=== PATIENT | female | born 1990 | race African-American/Black ===

== ENCOUNTER 2018-08-08 10:08 | Emergency (ER) | payer OTHER ==
[~2018-08-08] VITALS: Ht 167.6 cm; Wt 108.9 kg
[2018-08-08 10:34] VITALS: BP 110/70
[2018-08-08] MEDS ORDERED: IV NORMAL SALINE 1000ML BAG 1,000 ML IV ONE (10:45)
--- NOTE | 2018-08-08 10:48 | PHYS DOC ---
Past Medical History Past Medical History: Asthma Alcohol Use: None Drug Use: None Adult General Chief Complaint Chief Complaint: VOMITING IN HPI HPI Patient is a 28 year old AA female who presents to the ER with complaints of nausea and vomiting for the last 2 weeks. Pt states she is unsure of when her LMP was, she reports having irregular cycles since having her Nexplanon removed. She denies any fever, back pain, abdominal pain, pelvic pain, vaginal bleeding, irregular vaginal discharge, dysuria, or urinary frequency. Pt states she has had a dry cough, and sore throat for the last week. She is 2 para 1. She has not seen her OBgyn yet, she has an appointment scheduled for 08/22. Review of Systems Review of Systems Constitutional: Denies fever or chills [] Eyes: Denies change in visual acuity, redness, or eye pain [] HENT: Denies nasal congestion or ear pain, see HPI Respiratory: Denies wheezing or shortness of breath; see HPI Cardiovascular: No additional information not addressed in HPI [] GI: Denies abdominal pain, or diarrhea; see HPI : Denies dysuria or hematuria [] Musculoskeletal: Denies back pain or joint pain [] Integument: Denies rash or skin lesions [] Neurologic: Denies headache, focal weakness or sensory changes [] Current Medications Current Medications Current Medications Medications (Trade) Dose Ordered Sig/Elise Start Time Stop Time Status Last Admin Dose Admin Sodium Chloride 1,000 ml @ 1,000 mls/hr 1X ONCE 08/08/18 10:45 08/08/18 11:44 08/08/18 11:05 1,000 MLS/HR Allergies Allergies Allergies Coded Allergies Type Severity Reaction Last Updated Verified No Known Drug Allergies 08/08/18 No Physical Exam Physical Exam Constitutional: Well developed, well nourished, no acute distress, non-toxic appearance, obese [] HENT: Normocephalic, atraumatic, bilateral external ears normal, oropharynx moist, nose normal. [] Eyes: PERRLA, conjunctiva normal, no discharge. [] Neck: Normal range of motion, no stridor. [] Cardiovascular:Heart rate regular rhythm, no murmur [] Lungs & Thorax: Bilateral breath sounds clear to auscultation [] Abdomen: soft, no tenderness, no masses, no pulsatile masses. [] Skin: Warm, dry, no erythema, no rash. [] Extremities: No cyanosis, ROM intact, no edema. [] Neurologic: Alert and oriented X 3, normal motor function, normal sensory function, no focal deficits noted. [] Psychologic: Affect normal, judgement normal, mood normal. [] Current Patient Data Vital Signs Vital Signs Date Time Temp Pulse Resp B/P (MAP) Pulse Ox O2 Delivery O2 Flow Rate FiO2 08/08/18 10:34 98.6 89 18 110/70 (83) 99 Room Air 98.6 Lab Values Laboratory Tests Test 08/08/18 10:29 08/08/18 11:00 POC Urine HCG, Qualitative Hcg positive (Negative) White Blood Count 4.2 x10^3/uL (4.0-11.0) Red Blood Count 4.99 x10^6/uL (3.50-5.40) Hemoglobin 13.5 g/dL (12.0-15.5) Hematocrit 40.7 % (36.0-47.0) Mean Corpuscular Volume 82 fL (79-100) Mean Corpuscular Hemoglobin 27 pg (25-35) Mean Corpuscular Hemoglobin Concent 33 g/dL (31-37) Red Cell Distribution Width 14.3 % (11.5-14.5) Platelet Count 248 x10^3/uL (140-400) Neutrophils (%) (Auto) 66 % (31-73) Lymphocytes (%) (Auto) 23 % (24-48) L Monocytes (%) (Auto) 9 % (0-9) Eosinophils (%) (Auto) 2 % (0-3) Basophils (%) (Auto) 1 % (0-3) Neutrophils # (Auto) 2.8 x10^3uL (1.8-7.7) Lymphocytes # (Auto) 1.0 x10^3/uL (1.0-4.8) Monocytes # (Auto) 0.4 x10^3/uL (0.0-1.1) Eosinophils # (Auto) 0.1 x10^3/uL (0.0-0.7) Basophils # (Auto) 0.0 x10^3/uL (0.0-0.2) Sodium Level 136 mmol/L (136-145) Potassium Level 4.2 mmol/L (3.5-5.1) Chloride Level 101 mmol/L (98-107) Carbon Dioxide Level 25 mmol/L (21-32) Anion Gap 10 (6-14) Blood Urea Nitrogen 8 mg/dL (7-20) Creatinine 0.9 mg/dL (0.6-1.0) Estimated GFR (Cockcroft-Gault) 89.6 Glucose Level 92 mg/dL (70-99) Calcium Level 9.1 mg/dL (8.5-10.1) Laboratory Tests 08/08/18 11:00 Laboratory Tests 08/08/18 11:00 EKG EKG [] Radiology/Procedures Radiology/Procedures [] Course & Med Decision Making Course & Med Decision Making Pertinent Labs and Imaging studies reviewed. (See chart for details) Dx: vomiting in Pt was given 1L NS in the ER, she declined nausea medications, states she will not take zofran due to defects. Unable to obtain bedside FHTs advised pt that in early it is difficult to locate FHTs with bedside doppler. Encouraged clear fluids and rest, follow up with OBgyn Dr. Patten as scheduled. Call their office to notify them of ER visit. Patient verbalized an understanding of home care, medications, follow-up, and return to ED instructions and was in agreement with the plan of care. [] Dragon Disclaimer Dragon Disclaimer This electronic medical record was generated, in whole or in part, using a voice recognition dictation system. Departure Departure Impression: Primary Impression: Excessive vomiting in Disposition: 01 HOME, SELF-CARE Condition: STABLE Referrals: WICHO COTO MD (PCP) Patient Instructions: ABCs of , Nausea and Vomiting, [id number], - First Trimester, [id number] Additional Instructions: Take the medication for nausea that was prescribed by your OBGyn as prescribed. Increase clear fluids, then advance to bland foods. Follow up with Dr. Patten as scheduled, call their office to notify of ER visit. Return to ER if symptoms worsen. KARTHIK MASON APRN Aug 08, 2018 10:48
[2018-08-08 11:05] LABS: BASO % 1 % (0-3); EOS # 0.1 x10^3/uL (0.0-0.7); EOS % 2 % (0-3); HEMATOCRIT 40.7 % (36.0-47.0); HEMOGLOBIN 13.5 g/dL (12.0-15.5); LYMPH % 23 % (24-48); MEAN CORPUSCULAR HEMOGLOBIN 27 pg (25-35); MEAN CORPUSCULAR HGB CONC 33 g/dL (31-37); MEAN CORPUSCULAR VOLUME 82 fL (79-100); MONO # 0.4 x10^3/uL (0.0-1.1); MONO % 9 % (0-9); NEUT # 2.8 x10^3uL (1.8-7.7); NEUT % 66 % (31-73); PLATELET COUNT 248 x10^3/uL (140-400); RED BLOOD COUNT 4.99 x10^6/uL (3.50-5.40); RED CELL DISTRIBUTION WIDTH 14.3 % (11.5-14.5); WHITE BLOOD COUNT 4.2 x10^3/uL (4.0-11.0)
[2018-08-08 11:24] LABS: CALCIUM 9.1 mg/dL (8.5-10.1); CREATININE 0.9 mg/dL (0.6-1.0); GFR 89.6; POTASSIUM 4.2 mmol/L (3.5-5.1)
== END 2018-08-08 11:57 | disposition home or self-care (01) ==
LOC: ER 10:08
DX: O21.9 Vomiting of pregnancy, unspecified (principal); R05 Cough; J02.9 Acute pharyngitis, unspecified; O99.511 Diseases of the respiratory system complicating pregnancy, first trimester; J45.909 Unspecified asthma, uncomplicated; Z3A.00 Weeks of gestation of pregnancy not specified
CPT/HCPCS: 36415; 80048; 81025; 85025; 96360; 99283; J7030

== ENCOUNTER 2018-08-18 15:02 | Emergency (ER) | payer OTHER ==
[~2018-08-18] VITALS: Ht 167.6 cm; Wt 108.9 kg
--- NOTE | 2018-08-18 15:53 | PHYS DOC ---
Past Medical History Past Medical History: Asthma Past Surgical History: No Surgical History Alcohol Use: None Drug Use: None Adult General Chief Complaint Chief Complaint: VOMITING IN HPI HPI Patient is a 28 year old female 2 para 1 currently 12 weeks presenting to the ED today with nausea vomiting for one week. Patient states he has had nausea vomiting throughout this , has been seen in the Ed and the [facility], was given several medications for nausea. She started Reglan on Monday, she states she feels her symptoms have not improved. She states she feels short of air only on exertion. She states she feels dehydrated and would like IV fluids. Denies any personal family history of PEs. Denies vaginal bleeding or abdominal pain. Review of Systems Review of Systems Constitutional: Denies fever or chills [] Eyes: Denies change in visual acuity, redness, or eye pain [] HENT: Denies nasal congestion or sore throat [] Respiratory: Denies cough or shortness of breath [] Cardiovascular: No additional information not addressed in HPI [] GI: Reports nausea and vomiting in . Denies abdominal pain, bloody stools or diarrhea [] : Denies dysuria or hematuria [] Musculoskeletal: Denies back pain or joint pain [] Integument: Denies rash or skin lesions [] Neurologic: Denies headache, focal weakness or sensory changes [] All other systems were reviewed and found to be within normal limits, except as documented in this note. Current Medications Current Medications Current Medications Medications (Trade) Dose Ordered Sig/Elise Start Time Stop Time Status Last Admin Dose Admin Ondansetron HCl (Zofran) 4 mg 1X ONCE 08/18/18 16:00 08/18/18 16:01 DC Sodium Chloride 1,000 ml @ 1,000 mls/hr 1X ONCE 08/18/18 16:00 08/18/18 16:59 DC 08/18/18 16:15 1,000 MLS/HR Allergies Allergies Allergies Coded Allergies Type Severity Reaction Last Updated Verified No Known Drug Allergies 08/08/18 No Physical Exam Physical Exam Constitutional: Well developed, well nourished, no acute distress, non-toxic appearance. [] HENT: Normocephalic, atraumatic, bilateral external ears normal, oropharynx moist, no oral exudates, nose normal. [] Eyes: PERRLA, EOMI, conjunctiva normal, no discharge. [] Neck: Normal range of motion, no tenderness, supple, no stridor. [] Cardiovascular:Heart rate regular rhythm, no murmur [] Lungs & Thorax: Bilateral breath sounds clear to auscultation [] Abdomen: Bowel sounds normal, soft, no tenderness, no masses, no pulsatile masses. [] Skin: Warm, dry, no erythema, no rash. [] Back: No tenderness, no CVA tenderness. [] Extremities: No tenderness, no cyanosis, no clubbing, ROM intact, no edema. [] Neurologic: Alert and oriented X 3, normal motor function, normal sensory function, no focal deficits noted. [] Psychologic: Affect normal, judgement normal, mood normal. [] Current Patient Data Vital Signs Vital Signs Date Time Temp Pulse Resp B/P (MAP) Pulse Ox O2 Delivery O2 Flow Rate FiO2 08/18/18 17:00 66 108/65 (79) 100 Room Air 08/18/18 15:12 98.3 22 98.3 Lab Values Laboratory Tests Test 08/18/18 15:13 08/18/18 15:15 08/18/18 16:05 08/18/18 16:35 Urine Collection Type Unknown Urine Color Lola Urine Clarity Clear Urine pH 6.0 Urine Specific [place] >=1.030 Urine Protein Negative mg/dL (NEG-TRACE) Urine Glucose (UA) Negative mg/dL (NEG) Urine Ketones (Stick) Trace mg/dL (NEG) Urine Blood Negative (NEG) Urine Nitrite Negative (NEG) Urine Bilirubin Negative (NEG) Urine Urobilinogen Dipstick 1.0 mg/dL (0.2 mg/dL) Urine Leukocyte Esterase Small (NEG) Urine RBC 0 /HPF (0-2) Urine WBC 1-4 /HPF (0-4) Urine Squamous Epithelial Cells Mod /LPF Urine Bacteria Few /HPF (0-FEW) Urine Mucus Marked /LPF Urine Opiates Screen Neg (NEG) Urine Methadone Screen Neg (NEG) Urine Barbiturates Neg (NEG) Urine Phencyclidine Screen Neg (NEG) Urine Amphetamine/Methamphetamine Neg (NEG) Urine Benzodiazepines Screen Neg (NEG) Urine Cocaine Screen Neg (NEG) Urine Cannabinoids Screen Neg (NEG) Urine Ethyl Alcohol Neg (NEG) POC Urine HCG, Qualitative Hcg positive (Negative) White Blood Count 5.3 x10^3/uL (4.0-11.0) Red Blood Count 4.41 x10^6/uL (3.50-5.40) Hemoglobin 11.9 g/dL (12.0-15.5) L Hematocrit 36.1 % (36.0-47.0) Mean Corpuscular Volume 82 fL (79-100) Mean Corpuscular Hemoglobin 27 pg (25-35) Mean Corpuscular Hemoglobin Concent 33 g/dL (31-37) Red Cell Distribution Width 14.4 % (11.5-14.5) Platelet Count 229 x10^3/uL (140-400) Neutrophils (%) (Auto) 70 % (31-73) Lymphocytes (%) (Auto) 19 % (24-48) L Monocytes (%) (Auto) 9 % (0-9) Eosinophils (%) (Auto) 2 % (0-3) Basophils (%) (Auto) 1 % (0-3) Neutrophils # (Auto) 3.7 x10^3uL (1.8-7.7) Lymphocytes # (Auto) 1.0 x10^3/uL (1.0-4.8) Monocytes # (Auto) 0.4 x10^3/uL (0.0-1.1) Eosinophils # (Auto) 0.1 x10^3/uL (0.0-0.7) Basophils # (Auto) 0.0 x10^3/uL (0.0-0.2) Sodium Level 136 mmol/L (136-145) Potassium Level 3.9 mmol/L (3.5-5.1) Chloride Level 104 mmol/L (98-107) Carbon Dioxide Level 25 mmol/L (21-32) Anion Gap 7 (6-14) Blood Urea Nitrogen 10 mg/dL (7-20) Creatinine 0.7 mg/dL (0.6-1.0) Estimated GFR (Cockcroft-Gault) 119.7 BUN/Creatinine Ratio 14 (6-20) Glucose Level 84 mg/dL (70-99) Calcium Level 8.5 mg/dL (8.5-10.1) Total Bilirubin 0.2 mg/dL (0.2-1.0) Aspartate Amino Transferase (AST) 13 U/L (15-37) L Alanine Aminotransferase (ALT) 13 U/L (14-59) L Alkaline Phosphatase 52 U/L (46-116) Total Protein 6.5 g/dL (6.4-8.2) Albumin 2.9 g/dL (3.4-5.0) L Albumin/Globulin Ratio 0.8 (1.0-1.7) L Lipase 139 U/L (73-393) Ethyl Alcohol Level < 10 mg/dL (0-10) Laboratory Tests 08/18/18 16:05 Laboratory Tests 08/18/18 16:35 EKG EKG [] Radiology/Procedures Radiology/Procedures [] Course & Med Decision Making Course & Med Decision Making Pertinent Labs and Imaging studies reviewed. (See chart for details) This is a 28 year old female 2 para 1 currently 12 weeks presenting to the ED today with nausea vomiting for one week and shortness of breath this morning on exertion. CBC, CMP, lipase, no acute findings, urine noted for small leukocytes but is contaminated will be sent for culture. Given IV fluids, zofran feeling better. F/u with OB next week. Dragon Disclaimer Dragon Disclaimer This electronic medical record was generated, in whole or in part, using a voice recognition dictation system. Departure Departure Impression: Primary Impression: Hyperemesis gravidarum Disposition: 01 HOME, SELF-CARE Condition: STABLE Referrals: WICHO COTO MD (PCP) follow up with your doctor next week Patient Instructions: Diet - Hyperemesis Gravidarum, Hyperemesis Gravidarum Additional Instructions: You were seen for nausea vomiting in , continue taking the medications you got from your doctor. Push fluids. Follow-up with your doctor next week NORBERTO SALOMON APRN Aug 18, 2018 15:53
[2018-08-18 15:59] LABS: BILIRUBIN,URINE NEGATIVE (NEG); CLARITY,URINE CLEAR; COLOR,URINE AMBER; NITRITE,URINE NEGATIVE (NEG); PROTEIN,URINE NEGATIVE (NEG-TRACE)
[2018-08-18] MEDS ORDERED: ONDANSETRON PF 4 MG/2 ML VIAL. IV ONE (16:00)
[2018-08-18] MEDS ORDERED: IV NORMAL SALINE 1000ML BAG 1,000 ML IV ONE (16:00)
[2018-08-18 16:06] LABS: BARBITURATES NEG (NEG); BENZODIAZEPINES NEG (NEG); CANNABINOIDS NEG (NEG); COCAINE NEG (NEG); METHADONE NEG (NEG); OPIATES NEG (NEG); PHENCYCLIDINE NEG (NEG)
[2018-08-18 16:07] LABS: SQUAMOUS EPITHELIAL CELL,UR MOD /LPF
[2018-08-18 16:08] LABS: BACTERIA,URINE FEW /HPF (0-FEW); RBC,URINE 0 /HPF (0-2)
[2018-08-18 16:10] LABS: AMPHETAMINE/METHAMPHETAMINE NEG (NEG)
[2018-08-18 16:18] LABS: BASO % 1 % (0-3); EOS # 0.1 x10^3/uL (0.0-0.7); EOS % 2 % (0-3); HEMATOCRIT 36.1 % (36.0-47.0); HEMOGLOBIN 11.9 g/dL (12.0-15.5); LYMPH % 19 % (24-48); MEAN CORPUSCULAR HEMOGLOBIN 27 pg (25-35); MEAN CORPUSCULAR HGB CONC 33 g/dL (31-37); MEAN CORPUSCULAR VOLUME 82 fL (79-100); MONO # 0.4 x10^3/uL (0.0-1.1); MONO % 9 % (0-9); NEUT # 3.7 x10^3uL (1.8-7.7); NEUT % 70 % (31-73); PLATELET COUNT 229 x10^3/uL (140-400); RED BLOOD COUNT 4.41 x10^6/uL (3.50-5.40); RED CELL DISTRIBUTION WIDTH 14.4 % (11.5-14.5); WHITE BLOOD COUNT 5.3 x10^3/uL (4.0-11.0)
[2018-08-18 16:49] LABS: CALCIUM 8.5 mg/dL (8.5-10.1); CREATININE 0.7 mg/dL (0.6-1.0); GFR 119.7; POTASSIUM 3.9 mmol/L (3.5-5.1)
[2018-08-18 16:55] LABS: ALBUMIN 2.9 g/dL (3.4-5.0); ALBUMIN/GLOBULIN RATIO 0.8 (1.0-1.7); TOTAL BILIRUBIN 0.2 mg/dL (0.2-1.0); TOTAL PROTEIN 6.5 g/dL (6.4-8.2)
[2018-08-18 17:00] VITALS: BP 108/65
[2018-08-19] MEDS ORDERED: DIPH25CA58 PO (18:02)
[2018-08-19] MEDS ORDERED: PRED50TA PO (18:02)
[2018-08-19] MEDS ORDERED: FAMO-63 PO (18:02)
== END 2018-08-18 17:50 | disposition home or self-care (01) ==
LOC: ER 15:02
DX: O21.0 Mild hyperemesis gravidarum (principal); O99.511 Diseases of the respiratory system complicating pregnancy, first trimester; J45.909 Unspecified asthma, uncomplicated; Z3A.12 12 weeks gestation of pregnancy
CPT/HCPCS: 36415; 80053; 80307; 81001; 81025; 83690; 85025; 87086; 96360; 99283; G0480; J7030

== ENCOUNTER 2018-08-19 15:52 | Emergency (ER) | payer OTHER ==
[~2018-08-19] VITALS: Ht 167.6 cm; Wt 108.9 kg
[2018-08-19] MEDS ORDERED: FAMOTIDINE 20 MG/2 ML VIAL IVP ONE (16:00)
[2018-08-19] MEDS ORDERED: diphenhydrAMINE 50 MG/ML VIAL IVP ONE (16:00)
[2018-08-19] MEDS ORDERED: methylPREDNISolone SOD SUCC PF 125 MG/2 ML VIAL. IV ONE (16:00)
--- NOTE | 2018-08-19 16:14 | PHYS DOC ---
Past Medical History Past Medical History: Asthma Past Surgical History: No Surgical History Alcohol Use: None Drug Use: None Adult General Chief Complaint Chief Complaint: ALLERGIC REACTION HPI HPI Patient is a 28 year old female complains of allergic reaction. This started approximately 30 minutes after taking Reglan for nausea and vomiting. Patient is approximately 10-12 weeks , 2 para 1. She was brought in by EMS who gave her epinephrine and established an IV access. The epinephrine did help some. There has been no skin rash. Patient reports feels more like her tongue is swelling. Denies any wheezing.[] Review of Systems Review of Systems Constitutional: Denies fever or chills [] Eyes: Denies change in visual acuity, redness, or eye pain [] HENT: Denies nasal congestion or sore throat [] Respiratory: Denies cough or shortness of breath [] Cardiovascular: No additional information not addressed in HPI [] GI: Denies abdominal pain, nausea, vomiting, bloody stools or diarrhea [] : Denies dysuria or hematuria [] Musculoskeletal: Denies back pain or joint pain [] Integument: Denies rash or skin lesions [] Neurologic: Denies headache, focal weakness or sensory changes [] Endocrine: Denies polyuria or polydipsia [] All other systems were reviewed and found to be within normal limits, except as documented in this note. Current Medications Current Medications Current Medications Medications (Trade) Dose Ordered Sig/Elise Start Time Stop Time Status Last Admin Dose Admin Diphenhydramine HCl (Benadryl) 50 mg 1X ONCE 08/19/18 16:00 08/19/18 16:03 DC 08/19/18 16:08 50 MG Famotidine (Pepcid Vial) 20 mg 1X ONCE 08/19/18 16:00 08/19/18 16:03 DC 08/19/18 16:09 20 MG Methylprednisolone Sodium Succinate (SOLU-Medrol 125MG VIAL) 125 mg 1X ONCE 08/19/18 16:00 08/19/18 16:03 DC 08/19/18 16:08 125 MG Allergies Allergies Allergies Coded Allergies Type Severity Reaction Last Updated Verified metoclopramide Allergy Severe Anaphylaxis 08/19/18 Yes Physical Exam Physical Exam Constitutional: Well developed, well nourished, moderate distress, non-toxic appearance. [] HENT: Normocephalic, atraumatic, bilateral external ears normal, oropharynx moist, tongue is enlarged, no oral exudates, nose normal. [] Eyes: PERRLA, EOMI, conjunctiva normal, no discharge. [] Neck: Normal range of motion, no tenderness, supple, no stridor. [] Cardiovascular:Heart rate is tachycardic with a regular rhythm, no murmur [] Lungs & Thorax: Bilateral breath sounds clear to auscultation [] Abdomen: Bowel sounds normal, soft, no tenderness, no masses, no pulsatile masses. [] Skin: Warm, dry, no erythema, no rash. [] Back: No tenderness, no CVA tenderness. [] Extremities: No tenderness, no cyanosis, no clubbing, ROM intact, no edema. [] Neurologic: Alert and oriented X 3, normal motor function, normal sensory function, no focal deficits noted. [] Psychologic: Affect normal, judgement normal, mood normal. [] Current Patient Data Vital Signs Vital Signs Date Time Temp Pulse Resp B/P (MAP) Pulse Ox O2 Delivery O2 Flow Rate FiO2 08/19/18 15:55 98.1 120 18 143/78 (99) 95 Room Air 98.1 EKG EKG [] Radiology/Procedures Radiology/Procedures [] Course & Med Decision Making Course & Med Decision Making Pertinent Labs and Imaging studies reviewed. (See chart for details) ED course: Patient arrived, was placed in bed, and tolerated exam well. She was given diphenhydramine, Pepcid, and Solu-Medrol which very quickly improved her symptoms. She was observed for several hours with no return of the symptoms. She was discharged in improved condition. Medical decision making: This appears to be an allergic reaction however this may be also a dystonic reaction given the tongue issues. Given that the patient is , we will continue this regimen.[] Dragon Disclaimer Dragon Disclaimer This electronic medical record was generated, in whole or in part, using a voice recognition dictation system. Departure Departure Impression: Primary Impression: Allergic reaction Disposition: 01 HOME, SELF-CARE Condition: IMPROVED Referrals: WICHO COTO MD (PCP) Follow-up in 2 days Patient Instructions: Drug Allergy Additional Instructions: Follow-up with your regular doctor in 2 days. Do not take any more metoclopramide/Reglan. Fax the [employer] voucher that your ER physician filled out for you. Return to the ER if worsening difficulty breathing or any other concerns. Scripts Famotidine (PEPCID) 20 Mg Tablet 20 MG PO BID for 10 Days, #20 TAB Prov: BULL KAMARA DO 08/19/18 Prednisone (PREDNISONE) 50 Mg Tablet 50 MG PO DAILY for 7 Days, #7 TAB Prov: BULL KAMARA DO 08/19/18 Diphenhydramine Hcl (BENADRYL) 25 Mg Capsule 2 CAP PO QIDPRN PRN for ALLERGIES, #60 CAP 2 Refills Prov: BULL KAMARA DO 08/19/18 Problem Qualifiers Primary Impression: Allergic reaction Encounter type: initial encounter Qualified Codes: T78.40XA - Allergy, unspecified, initial encounter BULL KAMARA DO Aug 19, 2018 16:14
[2018-08-19] MEDS ORDERED: PRED50TA PO (18:02)
[2018-08-19] MEDS ORDERED: DIPH25CA58 PO (18:02)
[2018-08-19] MEDS ORDERED: FAMO-63 PO (18:02)
[2018-08-19 18:15] VITALS: BP 119/64
== END 2018-08-19 18:16 | disposition home or self-care (01) ==
LOC: ER 15:52
DX: O26.891 Other specified pregnancy related conditions, first trimester (principal); T78.40XA Allergy, unspecified, initial encounter; O21.9 Vomiting of pregnancy, unspecified; K14.8 Other diseases of tongue; Z88.8 Allergy status to other drugs, medicaments and biological substances; Z3A.11 11 weeks gestation of pregnancy; O99.511 Diseases of the respiratory system complicating pregnancy, first trimester; J45.909 Unspecified asthma, uncomplicated
CPT/HCPCS: 96374; 96375; 99283; J1200; J2930; J3490

== ENCOUNTER 2019-06-05 00:24 | Inpatient (IN) | payer OTHER ==
[~2019-06-05] VITALS: Ht 167.6 cm; Wt 120.2 kg
[~2019-06-05 00:24] MED LIST: DIPH25CA58 PO; FAMO-63 PO; PRED50TA PO
[2019-06-05] MEDS ORDERED: fentaNYL PF VIAL 100 MCG/2 ML VIAL IV PRN (01:30)
[2019-06-05] MEDS ORDERED: IV NORMAL SALINE 1000ML BAG 1,000 ML IV SCH (01:30)
[2019-06-05] MEDS ORDERED: ONDANSETRON PF 4 MG/2 ML VIAL. IV ONE (01:30)
[2019-06-05 01:35] LABS: BASO % 1 % (0-3); EOS # 0.3 x10^3/uL (0.0-0.7); EOS % 7 % (0-3); HEMATOCRIT 37.9 % (36.0-47.0); HEMOGLOBIN 12.4 g/dL (12.0-15.5); LYMPH # 0.9 x10^3/uL (1.0-4.8); LYMPH % 24 % (24-48); MEAN CORPUSCULAR HEMOGLOBIN 26 pg (25-35); MEAN CORPUSCULAR HGB CONC 33 g/dL (31-37); MEAN CORPUSCULAR VOLUME 80 fL (79-100); MONO # 0.4 x10^3/uL (0.0-1.1); MONO % 12 % (0-9); NEUT % 56 % (31-73); PLATELET COUNT 178 x10^3/uL (140-400); RED BLOOD COUNT 4.71 x10^6/uL (3.50-5.40); RED CELL DISTRIBUTION WIDTH 15.5 % (11.5-14.5); WHITE BLOOD COUNT 3.6 x10^3/uL (4.0-11.0)
[2019-06-05 01:43] LABS: CALCIUM 8.4 mg/dL (8.5-10.1); GFR 78.8; POTASSIUM 3.7 mmol/L (3.5-5.1)
[2019-06-05 01:48] LABS: ALBUMIN 3.1 g/dL (3.4-5.0); ALBUMIN/GLOBULIN RATIO 0.8 (1.0-1.7); TOTAL BILIRUBIN 0.2 mg/dL (0.2-1.0)
[2019-06-05] MEDS ORDERED: IOHEXOL 300 MG/ML 100ML VIAL. IV ONE (02:00)
[2019-06-05] MEDS ORDERED: CONTRAST GIVEN. MC PRN (02:30)
--- NOTE | 2019-06-05 02:30 | RAD ---
CT ABD PELV W/ IV CONTRST ONLY History: Abdominal pain Comparison: None. Technique: After administration of intravenous contrast, helical CT of the abdomen and pelvis was performed from the lung bases through the ischial tuberosities. Coronal and sagittal reconstructions were obtained. 75 mL of Omnipaque 350 were used. One or more of the following dose reduction techniques were utilized: Automated exposure control (AEC), Adjustment of mA and/or kV according to patient size, Use of iterative reconstruction technique such as ASiR, CT scan done according to ALARA and image gently/image wisely Abdomen Findings: The visualized lung bases are clear. Hypoechoic hepatic dome mass with areas of nodular enhancement along the periphery measuring 5.9 x 6.1 x 5.2 cm. The gallbladder, pancreas, spleen, and bilateral adrenal glands are normal. Symmetric renal enhancement. There is no focal renal mass. There is no hydronephrosis. The visualized loops of small bowel are normal. The visualized loops of large bowel are normal. There is no evidence of bowel obstruction. Appendix is normal. There is no free fluid. There is no mesenteric or retroperitoneal adenopathy. The abdominal aorta is normal in caliber. Tubular structure with enhancing wall and central low-attenuation thrombus in the expected location of the right ovarian vein. Pelvis Findings: Urinary bladder is normal. No pelvic free fluid. There is no pelvic or inguinal adenopathy. There is no acute bony abnormality. Small fat-containing supraumbilical ventral hernia. IMPRESSION: 1. 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 2. Hepatic dome mass measuring 6.1 cm, incompletely evaluated on this single phase contrast imaging but with some imaging features suggestive of a large hepatic hemangioma. This could be further characterized with a follow-up three-phase hepatic protocol CT or contrast-enhanced MRI. Electronically signed by: Robert Meraz MD (06/05/2019 2:27 AM) [id number]
--- NOTE | 2019-06-05 02:58 | PHYS DOC ---
Past Medical History Past Medical History: Asthma Past Surgical History: , Tubal ligation Alcohol Use: None Drug Use: None Adult General Chief Complaint Chief Complaint: ABDOMINAL PAIN HPI HPI Patient is a 29-year-old female who presents with complaint of abdominal pain with nausea and vomiting that has been intermittent for the last 4 days. She states that each time she eats, she gets very bloated and then over the last couple of days has been having nausea and vomiting. She states that she has pain in both her upper and her lower abdomen. She rates pain as moderate. She denies any diarrhea. She also denies any fever. Patient states that nothing is improving her symptoms.[] Review of Systems Review of Systems Constitutional: Denies fever or chills [] Respiratory: Denies cough or shortness of breath [] Cardiovascular: No additional information not addressed in HPI [] GI: [place] of abdominal pain with nausea and vomiting. Denies diarrhea [] : Denies dysuria or hematuria [] Neurologic: Denies headache, focal weakness or sensory changes [] All other systems were reviewed and found to be within normal limits, except as documented in this note. Current Medications Current Medications Current Medications Medications (Trade) Dose Ordered Sig/Elise Start Time Stop Time Status Last Admin Dose Admin Fentanyl Citrate (Fentanyl 2ml Vial) 25 mcg PRN Q15MIN PRN 06/05/19 01:30 06/06/19 01:29 06/05/19 01:47 25 MCG Info (CONTRAST GIVEN -- Rx MONITORING) 1 each PRN DAILY PRN 06/05/19 02:30 06/07/19 02:29 Iohexol (Omnipaque 300 Mg/ml) 75 ml 1X ONCE 06/05/19 02:00 06/05/19 02:15 DC 06/05/19 02:06 75 ML Ondansetron HCl (Zofran) 4 mg 1X ONCE 06/05/19 01:30 06/05/19 01:32 DC 06/05/19 01:47 4 MG Sodium Chloride 1,000 ml @ 1,000 mls/hr Q1H 06/05/19 01:30 06/05/19 02:29 DC 06/05/19 01:47 1,000 MLS/HR Allergies Allergies Allergies Coded Allergies Type Severity Reaction Last Updated Verified metoclopramide Allergy Severe Anaphylaxis 08/19/18 Yes Physical Exam Physical Exam Constitutional: Well developed, well nourished, no acute distress, non-toxic appearance. [] HENT: Normocephalic, atraumatic, bilateral external ears normal, oropharynx moist, no oral exudates, nose normal. [] Eyes: PERRLA, EOMI, conjunctiva normal, no discharge. [] Neck: Normal range of motion, no tenderness, supple. [] Cardiovascular: Regular rate and rhythm[] Lungs & Thorax: Bilateral breath sounds clear to auscultation [] Abdomen: Bowel sounds normal, soft, with diffuse abdominal tenderness. [] Skin: Warm, dry, no erythema, no rash. [] Extremities: No tenderness, no cyanosis, no clubbing, ROM intact, no edema. [] Neurologic: Alert and oriented X 3, no focal deficits noted. [] Current Patient Data Vital Signs Vital Signs Date Time Temp Pulse Resp B/P (MAP) Pulse Ox O2 Delivery O2 Flow Rate FiO2 06/05/19 00:25 97.4 80 18 126/75 (92) 99 Room Air 97.4 Lab Values Laboratory Tests Test 06/05/19 01:29 White Blood Count 3.6 x10^3/uL (4.0-11.0) L Red Blood Count 4.71 x10^6/uL (3.50-5.40) Hemoglobin 12.4 g/dL (12.0-15.5) Hematocrit 37.9 % (36.0-47.0) Mean Corpuscular Volume 80 fL (79-100) Mean Corpuscular Hemoglobin 26 pg (25-35) Mean Corpuscular Hemoglobin Concent 33 g/dL (31-37) Red Cell Distribution Width 15.5 % (11.5-14.5) H Platelet Count 178 x10^3/uL (140-400) Neutrophils (%) (Auto) 56 % (31-73) Lymphocytes (%) (Auto) 24 % (24-48) Monocytes (%) (Auto) 12 % (0-9) H Eosinophils (%) (Auto) 7 % (0-3) H Basophils (%) (Auto) 1 % (0-3) Neutrophils # (Auto) 2.0 x10^3/uL (1.8-7.7) Lymphocytes # (Auto) 0.9 x10^3/uL (1.0-4.8) L Monocytes # (Auto) 0.4 x10^3/uL (0.0-1.1) Eosinophils # (Auto) 0.3 x10^3/uL (0.0-0.7) Basophils # (Auto) 0.0 x10^3/uL (0.0-0.2) Sodium Level 140 mmol/L (136-145) Potassium Level 3.7 mmol/L (3.5-5.1) Chloride Level 104 mmol/L (98-107) Carbon Dioxide Level 27 mmol/L (21-32) Anion Gap 9 (6-14) Blood Urea Nitrogen 16 mg/dL (7-20) Creatinine 1.0 mg/dL (0.6-1.0) Estimated GFR (Cockcroft-Gault) 78.8 BUN/Creatinine Ratio 16 (6-20) Glucose Level 96 mg/dL (70-99) Calcium Level 8.4 mg/dL (8.5-10.1) L Total Bilirubin 0.2 mg/dL (0.2-1.0) Aspartate Amino Transferase (AST) 21 U/L (15-37) Alanine Aminotransferase (ALT) 22 U/L (14-59) Alkaline Phosphatase 84 U/L (46-116) Total Protein 7.0 g/dL (6.4-8.2) Albumin 3.1 g/dL (3.4-5.0) L Albumin/Globulin Ratio 0.8 (1.0-1.7) L Lipase 152 U/L (73-393) Laboratory Tests 06/05/19 01:29 Laboratory Tests 06/05/19 01:29 EKG EKG [] Radiology/Procedures Radiology/Procedures [] Impressions: CT ABD PELV W/ IV CONTRST ONLY History: Abdominal pain Comparison: None. Technique: After administration of intravenous contrast, helical CT of the abdomen and pelvis was performed from the lung bases through the ischial tuberosities. Coronal and sagittal reconstructions were obtained. 75 mL of Omnipaque 350 were used. One or more of the following dose reduction techniques were utilized: Automated exposure control (AEC), Adjustment of mA and/or kV according to patient size, Use of iterative reconstruction technique such as ASiR, CT scan done according to ALARA and image gently/image wisely Abdomen Findings: The visualized lung bases are clear. Hypoechoic hepatic dome mass with areas of nodular enhancement along the periphery measuring 5.9 x 6.1 x 5.2 cm. The gallbladder, pancreas, spleen, and bilateral adrenal glands are normal. Symmetric renal enhancement. There is no focal renal mass. There is no hydronephrosis. The visualized loops of small bowel are normal. The visualized loops of large bowel are normal. There is no evidence of bowel obstruction. Appendix is normal. There is no free fluid. There is no mesenteric or retroperitoneal adenopathy. The abdominal aorta is normal in caliber. Tubular structure with enhancing wall and central low-attenuation thrombus in the expected location of the right ovarian vein. Pelvis Findings: Urinary bladder is normal. No pelvic free fluid. There is no pelvic or inguinal adenopathy. There is no acute bony abnormality. Small fat-containing supraumbilical ventral hernia. IMPRESSION: 1. 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 2. Hepatic dome mass measuring 6.1 cm, incompletely evaluated on this single phase contrast imaging but with some imaging features suggestive of a large hepatic hemangioma. This could be further characterized with a follow-up three-phase hepatic protocol CT or contrast-enhanced MRI. Electronically signed by: Robert Meraz MD (06/05/2019 2:27 AM) [facility] Course & Med Decision Making Course & Med Decision Making Pertinent Labs and Imaging studies reviewed. (See chart for details) [] Dragon Disclaimer Dragon Disclaimer This electronic medical record was generated, in whole or in part, using a voice recognition dictation system. Departure Departure Impression: Primary Impression: Thrombosis of ovarian vein Additional Impressions: Liver mass Nausea and vomiting Disposition: ADMITTED INPATIENT Admitting Physician: ANTONIO (Dr. Max) Condition: IMPROVED Referrals: UNKNOWN PCP NAME (PCP) Problem Qualifiers Additional Impressions: Nausea and vomiting Vomiting type: unspecified Vomiting Intractability: unspecified Qualified Codes: R11.2 - Nausea with vomiting, unspecified RUDOLPH KEYES Jr. DO Jun 05, 2019 02:57
[2019-06-05] MEDS ORDERED: MORPHINE SULFATE 4 MG/ML VIAL. IV PRN (03:30)
[2019-06-05] MEDS ORDERED: ONDANSETRON PF 4 MG/2 ML VIAL. IV PRN (03:30)
[2019-06-05] MEDS ORDERED: PIPERACILLIN/TAZOBACTAM 3.375 GM in IV NORMAL SALINE 50ML 50 ML IV ONE (03:30)
[2019-06-05] MEDS: IV NORMAL SALINE 1000ML BAG 1,000 ML IV SCH ×3 (03:48→18:29)
[2019-06-05 04:01] LABS: BILIRUBIN,URINE NEGATIVE (NEG); CLARITY,URINE CLOUDY; COLOR,URINE YELLOW; NITRITE,URINE NEGATIVE (NEG); PH,URINE 7.5; PROTEIN,URINE NEGATIVE (NEG-TRACE)
[2019-06-05 04:05] LABS: SQUAMOUS EPITHELIAL CELL,UR FEW /LPF
[2019-06-05 04:07] LABS: BACTERIA,URINE FEW /HPF (0-FEW); RBC,URINE RARE /HPF (0-2)
[2019-06-05 04:35] VITALS: BP 123/72
[2019-06-05] MEDS ORDERED: DOCU-109 PO (05:19)
--- NOTE | 2019-06-05 05:21 | NUR ---
Report given at 0419. Pt. arrived on unit at 0435 by wheelchair from ED. Pt. is A&Ox4, on room air and VSS. Pt. complains of pain being 3/10 and pain is dull and intermittent. Admission assessment and admission questions done at this time. Call light is within reach with bed in lowest position. Pt.'s diet was explained as well as safety precautions. Will continue to monitor.
[2019-06-05 07:00] VITALS: BP 125/84
[2019-06-05] MEDS ORDERED: oxyCODONE/APAP 5/325 1 TAB TABLET PO PRN (08:00)
[2019-06-05] MEDS ORDERED: ONDANSETRON PF 4 MG/2 ML VIAL. IVP PRN (08:00)
[2019-06-05] MEDS ORDERED: diphenhydrAMINE HCL 25 MG CAPSULE PO PRN (08:00)
[2019-06-05] MEDS ORDERED: fentaNYL PF VIAL 100 MCG/2 ML VIAL IVP PRN (08:00)
--- NOTE | 2019-06-05 08:37 | PDOC1 ---
History and Physical Date of Admission Date of Admission DATE: 06/05/19 TIME: 08:31 Identification/Chief Complaint Chief Complaint abd pain, epigastric, all over, nausea, bloated x 4 days Source Source: Caregiver, Chart review, Patient History of Present Illness History of Present Illness 29 yo OBese AA female, BMI 40, post for twins x few mos now ([facility])< comes in bec of 4 day hx abd pain, diffuse, epigastric, 30 MINS AFTER A MEAL, no relief with zofran, nausea, emesis x 2 , no fevers, no diarrhea of change in BM< CT scan shows i believe are INCIDENTAL finding of liver dome mass could be cyst or hemangioma, 6 cms in diam greatest and RT ovarian thrombosis, (could be), SHe got a dose of lovenox weight based x 1. NPO< stil some abd pain bt no more emesis since admission, She had her tubes tied during her CS for twin,s was rather uncomplicated except for SEVERE ANAPHYLACTIC REACTION to reglan when she was nauseated during her . LAbs and VS ok SHe is NOT Past Medical History Cardiovascular: No pertinent hx Pulmonary: No pertinent hx GI: No pertinent hx Heme/Onc: No pertinent hx Hepatobiliary: No pertinent hx Psych: No pertinent hx Rheumatologic: No pertinent hx Infectious disease: No pertinent hx ENT: No pertinent hx Renal/: No pertinent hx Endocrine: No pertinent hx Dermatology: No pertinent hx Past Surgical History Past Surgical History: , Tubal Ligation Family History Family History: No Significant Social History Smoke: No ALCOHOL: none Drugs: None Current Problem List Problem List Problems Medical Problems: (1) Liver mass Status: Acute (2) Nausea and vomiting Status: Acute (3) Thrombosis of ovarian vein Status: Acute Current Medications Current Medications Current Medications Fentanyl Citrate (Fentanyl 2ml Vial) 25 mcg PRN Q15MIN PRN IV PAIN GREATER THAN 3/10 Last administered on 06/05/19at 01:47; Start 06/05/19 at 01:30; Stop 06/06/19 at 01:29 Sodium Chloride 1,000 ml @ 1,000 mls/hr Q1H IV Last administered on 06/05/19at 01:47; Start 06/05/19 at 01:30; Stop 06/05/19 at 02:29; Status DC Ondansetron HCl (Zofran) 4 mg 1X ONCE IV Last administered on 06/05/19at 01:47; Start 06/05/19 at 01:30; Stop 06/05/19 at 01:32; Status DC Iohexol (Omnipaque 300 Mg/ml) 75 ml 1X ONCE IV Last administered on 06/05/19at 02:06; Start 06/05/19 at 02:00; Stop 06/05/19 at 02:15; Status DC Info (CONTRAST GIVEN -- Rx MONITORING) 1 each PRN DAILY PRN MC SEE COMMENTS; Start 06/05/19 at 02:30; Stop 06/07/19 at 02:29 Piperacillin Sod/ Tazobactam Sod 3.375 gm/Sodium Chloride 50 ml @ 100 mls/hr 1X ONCE IV Last administered on 06/05/19at 03:49; Start 06/05/19 at 03:30; Stop 06/05/19 at 03:59; Status DC Enoxaparin Sodium (Lovenox 120mg Syringe) 120 mg 1X ONCE SQ Last administered on 06/05/19at 03:49; Start 06/05/19 at 03:30; Stop 06/05/19 at 03:31; Status DC Ondansetron HCl (Zofran) 4 mg PRN Q8HRS PRN IV NAUSEA/VOMITING; Start 06/05/19 at 03:30; Stop 06/06/19 at 03:29 Morphine Sulfate (Morphine Sulfate) 4 mg PRN Q2HR PRN IV PAIN; Start 06/05/19 at 03:30; Stop 06/06/19 at 03:29 Sodium Chloride 1,000 ml @ 125 mls/hr Q8H IV Last administered on 06/05/19at 03:48; Start 06/05/19 at 03:30; Stop 06/06/19 at 03:29 Fentanyl Citrate (Fentanyl 2ml Vial) 50 mcg PRN Q2HR PRN IVP PAIN; Start at 08:00 Ondansetron HCl (Zofran) 4 mg PRN Q6HRS PRN IVP NAUSEA/VOMITING; Start 06/05/19 at 08:00 Oxycodone/ Acetaminophen (Percocet 5/325) 1 tab PRN Q4HRS PRN PO PAIN; Start 06/05/19 at 08:00 Diphenhydramine HCl (Benadryl) 50 mg QIDPRN PRN PO ALLERGIES; Start 06/05/19 at 08:00 Docusate Sodium (Colace) 100 mg BID PO ; Start 06/05/19 at 09:00 Famotidine (Pepcid) 20 mg BID PO ; Start 06/05/19 at 09:00 Active Scripts Active Pepcid (Famotidine) 20 Mg Tablet 20 Mg PO BID 10 Days Prednisone 50 Mg Tablet 50 Mg PO DAILY 7 Days Benadryl (Diphenhydramine Hcl) 25 Mg Capsule 2 Cap PO QIDPRN PRN Reported Colace (Docusate Sodium) 100 Mg Capsule 1 Cap PO BID 30 Days Allergies Allergies: Coded Allergies: metoclopramide (Verified Allergy, Severe, Anaphylaxis, 08/19/18) ROS Review of System as per HPI all else is neg Physical Exam General: Alert, Oriented X3, Cooperative, No acute distress HEENT: PERRLA Lungs: Clear to auscultation, Normal air movement Heart: S1S2, RRR, no thrills, no rubs Cardiovascular: S1, S2 Breasts: Normal, Rt breast nml w/o mass, Lt breast nml w/o mass, Nipples normal Abdomen: Normal bowel sounds, Soft, No tenderness, No hepatosplenomegaly, No masses Rectal Exam: not examined PELVIC: Nml ext genitalia Extremities: No clubbing, No cyanosis, No edema, Normal pulses, No tend erness/swelling Skin: No rashes, No breakdown, No significant lesion Neuro: Normal gait, Normal speech, Strength at 5/5 X4 ext, Normal tone, Sensation intact, Cranial nerves 3-12 NL, Reflexes 2+ Psych/Mental Status: Mental status NL, Mood NL Vitals Vitals Vital Signs Date Time Temp Pulse Resp B/P (MAP) Pulse Ox O2 Delivery O2 Flow Rate FiO2 06/05/19 07:00 97.7 73 16 125/84 (98) 99 Room Air 97.7 Labs Labs Laboratory Tests Test 06/05/19 01:29 06/05/19 03:45 White Blood Count 3.6 x10^3/uL (4.0-11.0) Red Blood Count 4.71 x10^6/uL (3.50-5.40) Hemoglobin 12.4 g/dL (12.0-15.5) Hematocrit 37.9 % (36.0-47.0) Mean Corpuscular Volume 80 fL (79-100) Mean Corpuscular Hemoglobin 26 pg (25-35) Mean Corpuscular Hemoglobin Concent 33 g/dL (31-37) Red Cell Distribution Width 15.5 % (11.5-14.5) Platelet Count 178 x10^3/uL (140-400) Neutrophils (%) (Auto) 56 % (31-73) Lymphocytes (%) (Auto) 24 % (24-48) Monocytes (%) (Auto) 12 % (0-9) Eosinophils (%) (Auto) 7 % (0-3) Basophils (%) (Auto) 1 % (0-3) Neutrophils # (Auto) 2.0 x10^3/uL (1.8-7.7) Lymphocytes # (Auto) 0.9 x10^3/uL (1.0-4.8) Monocytes # (Auto) 0.4 x10^3/uL (0.0-1.1) Eosinophils # (Auto) 0.3 x10^3/uL (0.0-0.7) Basophils # (Auto) 0.0 x10^3/uL (0.0-0.2) Sodium Level 140 mmol/L (136-145) Potassium Level 3.7 mmol/L (3.5-5.1) Chloride Level 104 mmol/L (98-107) Carbon Dioxide Level 27 mmol/L (21-32) Anion Gap 9 (6-14) Blood Urea Nitrogen 16 mg/dL (7-20) Creatinine 1.0 mg/dL (0.6-1.0) Estimated GFR (Cockcroft-Gault) 78.8 BUN/Creatinine Ratio 16 (6-20) Glucose Level 96 mg/dL (70-99) Calcium Level 8.4 mg/dL (8.5-10.1) Total Bilirubin 0.2 mg/dL (0.2-1.0) Aspartate Amino Transf (AST/SGOT) 21 U/L (15-37) Alanine Aminotransferase (ALT/SGPT) 22 U/L (14-59) Alkaline Phosphatase 84 U/L (46-116) Total Protein 7.0 g/dL (6.4-8.2) Albumin 3.1 g/dL (3.4-5.0) Albumin/Globulin Ratio 0.8 (1.0-1.7) Lipase 152 U/L (73-393) Urine Collection Type Unknown Urine Color Yellow Urine Clarity Cloudy Urine pH 7.5 Urine Specific [place] >=1.030 Urine Protein Negative mg/dL (NEG-TRACE) Urine Glucose (UA) Negative mg/dL (NEG) Urine Ketones (Stick) Negative mg/dL (NEG) Urine Blood Negative (NEG) Urine Nitrite Negative (NEG) Urine Bilirubin Negative (NEG) Urine Urobilinogen Dipstick 1.0 mg/dL (0.2 mg/dL) Urine Leukocyte Esterase Moderate (NEG) Urine RBC Rare /HPF (0-2) Urine WBC 11-20 /HPF (0-4) Urine Squamous Epithelial Cells Few /LPF Urine Bacteria Few /HPF (0-FEW) Laboratory Tests Test 06/05/19 01:29 06/05/19 03:45 White Blood Count 3.6 x10^3/uL (4.0-11.0) Red Blood Count 4.71 x10^6/uL (3.50-5.40) Hemoglobin 12.4 g/dL (12.0-15.5) Hematocrit 37.9 % (36.0-47.0) Mean Corpuscular Volume 80 fL (79-100) Mean Corpuscular Hemoglobin 26 pg (25-35) Mean Corpuscular Hemoglobin Concent 33 g/dL (31-37) Red Cell Distribution Width 15.5 % (11.5-14.5) Platelet Count 178 x10^3/uL (140-400) Neutrophils (%) (Auto) 56 % (31-73) Lymphocytes (%) (Auto) 24 % (24-48) Monocytes (%) (Auto) 12 % (0-9) Eosinophils (%) (Auto) 7 % (0-3) Basophils (%) (Auto) 1 % (0-3) Neutrophils # (Auto) 2.0 x10^3/uL (1.8-7.7) Lymphocytes # (Auto) 0.9 x10^3/uL (1.0-4.8) Monocytes # (Auto) 0.4 x10^3/uL (0.0-1.1) Eosinophils # (Auto) 0.3 x10^3/uL (0.0-0.7) Basophils # (Auto) 0.0 x10^3/uL (0.0-0.2) Sodium Level 140 mmol/L (136-145) Potassium Level 3.7 mmol/L (3.5-5.1) Chloride Level 104 mmol/L (98-107) Carbon Dioxide Level 27 mmol/L (21-32) Anion Gap 9 (6-14) Blood Urea Nitrogen 16 mg/dL (7-20) Creatinine 1.0 mg/dL (0.6-1.0) Estimated GFR (Cockcroft-Gault) 78.8 BUN/Creatinine Ratio 16 (6-20) Glucose Level 96 mg/dL (70-99) Calcium Level 8.4 mg/dL (8.5-10.1) Total Bilirubin 0.2 mg/dL (0.2-1.0) Aspartate Amino Transf (AST/SGOT) 21 U/L (15-37) Alanine Aminotransferase (ALT/SGPT) 22 U/L (14-59) Alkaline Phosphatase 84 U/L (46-116) Total Protein 7.0 g/dL (6.4-8.2) Albumin 3.1 g/dL (3.4-5.0) Albumin/Globulin Ratio 0.8 (1.0-1.7) Lipase 152 U/L (73-393) Urine Collection Type Unknown Urine Color Yellow Urine Clarity Cloudy Urine pH 7.5 Urine Specific [place] >=1.030 Urine Protein Negative mg/dL (NEG-TRACE) Urine Glucose (UA) Negative mg/dL (NEG) Urine Ketones (Stick) Negative mg/dL (NEG) Urine Blood Negative (NEG) Urine Nitrite Negative (NEG) Urine Bilirubin Negative (NEG) Urine Urobilinogen Dipstick 1.0 mg/dL (0.2 mg/dL) Urine Leukocyte Esterase Moderate (NEG) Urine RBC Rare /HPF (0-2) Urine WBC 11-20 /HPF (0-4) Urine Squamous Epithelial Cells Few /LPF Urine Bacteria Few /HPF (0-FEW) VTE Prophylaxis Ordered VTE Prophylaxis Devices: Yes VTE Pharmacological Prophylaxi: Yes Assessment/Plan Assessment/Plan abd pain, MY TOP DIFFERENTIAL IS GB DSE/CHOLELITHIASIS - she is POst , obese with pain worsened after a meal - check sono HEpatic dome mass 6 cms, incidental could be hemangioma - i checked AFP for completion but i would be surprised if this were high RT ovarian vein thrombosis? - defer to OB GYNE signifcance of this, got lovenox weight ased x 1 Obesity BMI 43 Plan: I added GI consult AFp check NPO till GO, OB gyne rounds IVF while NPO US GB FUll code pain control dw her and family ESTHER BARRERA MD Jun 05, 2019 08:37
[2019-06-05] MEDS: FAMOTIDINE 20 MG TABLET. PO SCH ×3 (09:00→20:28)
[2019-06-05] MEDS: DOCUSATE SODIUM 100 MG CAPSULE. PO SCH ×3 (09:00→20:28)
--- NOTE | 2019-06-05 10:26 | PDOC2 ---
GI CONSULT Reason For Consult: Hepatic dome mass HPI: HPI: Pleasant 29 y/o female admitted through ER. Ate a [employer] sandwich Monday around noon, then began feeling nauseated at 4:00 p.m. Thought maybe she had food poisoning. Took some Zofran - has a supply for h/o hyperemesis, gave to twins 2 months ago. Had vomiting on Monday. On Monday, had ongoing nausea and some mild abdominal pain (can't remember location). On Monday, had lower abdominal pain - thought maybe cramps, wondered about starting her period (but didn't). On Monday, had "stabbing pain all over" abdomen "like I ate glass." Also felt really bloated and had post-prandial nausea. Tried Tums. H/o constipation - takes Colace daily. Was stooling normally for her, but then had a couple loose stools this morning - attributes to antibiotic. Feels "great" now - no n/v, might have a little lower abdominal discomfort. H/o GERD during - much better after giving . No dysphagia, hematemesis, chronic issues w/ n/v or abd pain, hematochezia, or melena. No previous EGD or colonoscopy. No GB, liver, pancreas, or PUD history. Labs unrevealing. On CT: right ovarian vein thrombus and 6.1cm hepatic dome mass (possible large hepatic hemangioma). RUQ US in process. Mother wants to know what's to be done about blood clot. MECHANICAL COMMISSIONING ENGINEER eval pending. PMH: PMH: hyperemesis gravidarum, asthma, constipation, GERD , tubal ligation FH: Family History: No pertinent hx (denies GI cancers) Social History: Smoke: No ALCOHOL: none Drugs: None ROS: GEN: Denies fevers, chills, sweats HEENT: Denies blurred vision, sore throat CV: Denies chest pain RESP: Denies shortness of air, cough GI: Per HPI : Denies hematuria, dysuria ENDO: Denies weight changes NEURO: Denies confusion, dizziness MSK: Denies weakness, joint pain/swelling SKIN: Denies jaundice, pruritus Vitals: Vitals: Vital Signs Date Time Temp Pulse Resp B/P (MAP) Pulse Ox O2 Delivery O2 Flow Rate FiO2 12/18/19 09:50 Room Air 06/05/19 07:00 97.7 73 16 125/84 (98) 99 97.7 Labs: Labs: Laboratory Tests Test 06/05/19 01:29 06/05/19 03:45 White Blood Count 3.6 x10^3/uL (4.0-11.0) Red Blood Count 4.71 x10^6/uL (3.50-5.40) Hemoglobin 12.4 g/dL (12.0-15.5) Hematocrit 37.9 % (36.0-47.0) Mean Corpuscular Volume 80 fL (79-100) Mean Corpuscular Hemoglobin 26 pg (25-35) Mean Corpuscular Hemoglobin Concent 33 g/dL (31-37) Red Cell Distribution Width 15.5 % (11.5-14.5) Platelet Count 178 x10^3/uL (140-400) Neutrophils (%) (Auto) 56 % (31-73) Lymphocytes (%) (Auto) 24 % (24-48) Monocytes (%) (Auto) 12 % (0-9) Eosinophils (%) (Auto) 7 % (0-3) Basophils (%) (Auto) 1 % (0-3) Neutrophils # (Auto) 2.0 x10^3/uL (1.8-7.7) Lymphocytes # (Auto) 0.9 x10^3/uL (1.0-4.8) Monocytes # (Auto) 0.4 x10^3/uL (0.0-1.1) Eosinophils # (Auto) 0.3 x10^3/uL (0.0-0.7) Basophils # (Auto) 0.0 x10^3/uL (0.0-0.2) Sodium Level 140 mmol/L (136-145) Potassium Level 3.7 mmol/L (3.5-5.1) Chloride Level 104 mmol/L (98-107) Carbon Dioxide Level 27 mmol/L (21-32) Anion Gap 9 (6-14) Blood Urea Nitrogen 16 mg/dL (7-20) Creatinine 1.0 mg/dL (0.6-1.0) Estimated GFR (Cockcroft-Gault) 78.8 BUN/Creatinine Ratio 16 (6-20) Glucose Level 96 mg/dL (70-99) Calcium Level 8.4 mg/dL (8.5-10.1) Total Bilirubin 0.2 mg/dL (0.2-1.0) Aspartate Amino Transf (AST/SGOT) 21 U/L (15-37) Alanine Aminotransferase (ALT/SGPT) 22 U/L (14-59) Alkaline Phosphatase 84 U/L (46-116) Total Protein 7.0 g/dL (6.4-8.2) Albumin 3.1 g/dL (3.4-5.0) Albumin/Globulin Ratio 0.8 (1.0-1.7) Lipase 152 U/L (73-393) Urine Collection Type Unknown Urine Color Yellow Urine Clarity Cloudy Urine pH 7.5 Urine Specific [place] >=1.030 Urine Protein Negative mg/dL (NEG-TRACE) Urine Glucose (UA) Negative mg/dL (NEG) Urine Ketones (Stick) Negative mg/dL (NEG) Urine Blood Negative (NEG) Urine Nitrite Negative (NEG) Urine Bilirubin Negative (NEG) Urine Urobilinogen Dipstick 1.0 mg/dL (0.2 mg/dL) Urine Leukocyte Esterase Moderate (NEG) Urine RBC Rare /HPF (0-2) Urine WBC 11-20 /HPF (0-4) Urine Squamous Epithelial Cells Few /LPF Urine Bacteria Few /HPF (0-FEW) Allergies: Coded Allergies: metoclopramide (Verified Allergy, Severe, Anaphylaxis, 08/19/18) Medications: Current Medications Medications (Trade) Dose Ordered Sig/Elise Route PRN Reason Start Time Stop Time Status Last Admin Dose Admin Fentanyl Citrate (Fentanyl 2ml Vial) 25 mcg PRN Q15MIN PRN IV PAIN GREATER THAN 3/10 06/05/19 01:30 06/06/19 01:29 06/05/19 01:47 Sodium Chloride 1,000 ml @ 1,000 mls/hr Q1H IV 06/05/19 01:30 06/05/19 02:29 DC 06/05/19 01:47 Ondansetron HCl (Zofran) 4 mg 1X ONCE IV 06/05/19 01:30 06/05/19 01:32 DC 06/05/19 01:47 Iohexol (Omnipaque 300 Mg/ml) 75 ml 1X ONCE IV 06/05/19 02:00 06/05/19 02:15 DC 06/05/19 02:06 Piperacillin Sod/ Tazobactam Sod 3.375 gm/Sodium Chloride 50 ml @ 100 mls/hr 1X ONCE IV 06/05/19 03:30 06/05/19 03:59 DC 06/05/19 03:49 Enoxaparin Sodium (Lovenox 120mg Syringe) 120 mg 1X ONCE SQ 06/05/19 03:30 06/05/19 03:31 DC 06/05/19 03:49 Sodium Chloride 1,000 ml @ 125 mls/hr Q8H IV 06/05/19 03:30 06/06/19 03:29 06/05/19 03:48 Imaging: Imaging: CT A/P IMPRESSION: 1. 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 2. Hepatic dome mass measuring 6.1 cm, incompletely evaluated on this single phase contrast imaging but with some imaging features suggestive of a large hepatic hemangioma. This could be further characterized with a follow-up three- phase hepatic protocol CT or contrast-enhanced MRI. PE: GEN: NAD HEENT: Atraumatic, PERRL LUNGS: CTAB HEART: RRR ABD: NABS, soft - limited exam - US in process EXTREMITY: No edema SKIN: No rashes, no jaundice NEURO/PSYCH: A & O 3 A/P: A/P: N/v, abd pain, bloating Abnormal CT - hepatic dome mass, right ovarian vein thrombosis H/o GERD during H/o constipation - controlled w/ Colace CRC screen - average risk Recent and tubal ligation -- ?hemangioma Await US and MECHANICAL COMMISSIONING ENGINEER opinion. ?n/v an infectious issue Okay to try clears, ADAT per GI after US. Agree w/ some sort of acid-mold maker helper - has famotidine ordered. Monitor loose stools. MAYCOL OHARA Jun 05, 2019 10:26
--- NOTE | 2019-06-05 10:31 | RAD ---
Limited abdomen ultrasound study right upper quadrant Clinical indications: Hepatic mass seen on CT study dated June 05, 2019. Abdominal pain. FINDINGS: No focal enlargement of the pancreas is seen. The gallbladder is normal without gallstones. The extra hepatic bile duct measures 2 mm in caliber which is normal. There is a homogeneous echogenic mass within the dome of the right lobe liver measuring 5.5 cm in greatest dimension. This corresponds to the CT finding. No internal color Doppler flow is seen within it. This is consistent with a hemangioma. The liver measures 16.5 cm in length. The length of the right kidney is 10.6 cm. No hydronephrosis or renal mass or perinephric fluid collection is seen on the right side. The intrahepatic portion of IVC is unremarkable. No focal aneurysmal dilatation of the abdominal aorta is seen. IMPRESSION: 5.5 cm hyperechoic solid mass of the dome of the right lobe of the liver without internal color flow consistent with a hemangioma and corresponds to the CT finding. This finding may be followed sonographically in 3 months. If the patient has a history of primary malignancy, then a multiphasic abdomen MRI with contrast study may be helpful for further evaluation now. Normal sonographic evaluation of gallbladder. Electronically signed by: Jose Walters MD (06/05/2019 10:29 AM) [facility]
[2019-06-05 11:00] VITALS: BP 128/86
--- NOTE | 2019-06-05 13:02 | NUR ---
SW following. Discussed with RN, pt is from home. Advancing diet as tolerated, ob to see pt. RN advised no SW needs at this time. SW will continue to follow should any discharge needs arise.
[2019-06-05 15:00] VITALS: BP 124/77
[2019-06-05 19:00] VITALS: BP 112/66
--- NOTE | 2019-06-05 19:58 | PDOC2 ---
CONSULT Date of Consult Date of Consult DATE: 06/05/19 TIME: 19:49 Reason for consultation: Ovarian vein thrombosis Consult: Hematology oncology, Dr. Margo Clayton History of present illness: She is a 29-year-old female who just had twins on 05 March 2019 via with bilateral tubal ligation and was admitted with abdominal pain associated with nausea and vomiting, acute, severe, worsening over a few days prior to admission, and she had a CT scan which was concerning for possible right ovarian vein thrombus, has received 1 dose of Lovenox, since then her abdominal symptoms seem to have resolved, on Abx as well, currently abdominal pain is 0 out of 10 and we were consulted regarding this possible right ovarian vein thrombosis. 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, has 3 children Family history: No known blood clots or history of cancer Review of systems: Stomach pain is a 0 out of 10 right now, does have a headache, no nausea currently, otherwise right at the moment the rest of the 10 point review of systems is negative Physical exam: Vitals reviewed Gen.: Well-nourished, obese, in no acute distress HEENT: mucous membranes moist, head normocephalic atraumatic Neck: Supple, no lymphadenopathy Lymph nodes: No palpable lymphadenopathy neck or axilla Lungs: Breathing comfortably on room air, no evidence of respiratory distress Heart: Regular rate and rhythm Abdomen: Soft, nontender, nondistended now Extremities: No cyanosis or signif edema Skin: No obvious rashes or skin breakdown Neuro: Alert and oriented 3 Psych: Normal mood and affect Lab reviewed: White count 3.6, she is -Nepalese, hemoglobin 12.4, platelet was 178, creatinine 1.0, alpha-fetoprotein 1.1 Rads reviewed: Abdominal pelvic CT shows suspicious right ovarian vein thrombus, 6.1 cm hepatic mass suggestive of hemangioma Ultrasound shows right liver mass, 5.5 cm, consistent with hemangioma, consider three-month follow-up ultrasound, or MRI if cancer history, of note she has no cancer history Case discussed with: Patient and her mother, records reviewed in [facility], including labs and radiology, discussed with nurses, please see note for summary details. Assessment and Plan: She is a 29-year-old female right at the 3 month post timeframe who had a and tubal ligation at the time of on 05 March 2019 to twins, and was admitted with GI symptoms including nausea and vomiting and abdominal pain that since resolved, and CT findings suspicious for right ovarian vein thrombus Suspicious right ovarian vein thrombus: We discussed multiple options to include watch and wait, w/ repeat scan short-term, vs treat now w/ anticoagulation for 3 months with her multiple risk factors certainly she is at risk for thrombosis, and taking into consideration everything she would like to begin short-term anticoagulation, will begin with apixaban 10 mg twice a day 7 days followed by 5 mg twice a day for total of 3 months and she will follow-up with me afterwards Liver hemangioma: Three-month follow-up ultrasound was recommended, can be done through primary as needed History of GERD: GI is involved Headache: Requesting Tylenol, happy to order this for her Disposition: After gynecology consultation, we will plan to arrange follow-up at 3 months as well when convenient Thank you kindly for this consultation, I will return on Monday morning but am available at any time for questions by phone. Past Medical History Cardiovascular: No pertinent hx Pulmonary: No pertinent hx GI: No pertinent hx Heme/Onc: No pertinent hx Hepatobiliary: No pertinent hx Psych: No pertinent hx Rheumatologic: No pertinent hx Infectious disease: No pertinent hx ENT: No pertinent hx Renal/: No pertinent hx Endocrine: No pertinent hx Dermatology: No pertinent hx Past Surgical History Past Surgical History: , Tubal Ligation Family History Family History: No Significant Social History No ALCOHOL: none Drugs: None Current Problem List Problem List Problems Medical Problems: (1) Liver mass Status: Acute (2) Nausea and vomiting Status: Acute (3) Thrombosis of ovarian vein Status: Acute Current Medications Current Medications Current Medications Fentanyl Citrate (Fentanyl 2ml Vial) 25 mcg PRN Q15MIN PRN IV PAIN GREATER THAN 3/10 Last administered on 06/05/19at 01:47; Start 06/05/19 at 01:30; Stop 06/06/19 at 01:29 Sodium Chloride 1,000 ml @ 1,000 mls/hr Q1H IV Last administered on 06/05/19at 01:47; Start 06/05/19 at 01:30; Stop 06/05/19 at 02:29; Status DC Ondansetron HCl (Zofran) 4 mg 1X ONCE IV Last administered on 06/05/19at 01:47; Start 06/05/19 at 01:30; Stop 06/05/19 at 01:32; Status DC Iohexol (Omnipaque 300 Mg/ml) 75 ml 1X ONCE IV Last administered on 06/05/19at 02:06; Start 06/05/19 at 02:00; Stop 06/05/19 at 02:15; Status DC Info (CONTRAST GIVEN -- Rx MONITORING) 1 each PRN DAILY PRN MC SEE COMMENTS; Start 06/05/19 at 02:30; Stop 06/07/19 at 02:29 Piperacillin Sod/ Tazobactam Sod 3.375 gm/Sodium Chloride 50 ml @ 100 mls/hr 1X ONCE IV Last administered on 06/05/19at 03:49; Start 06/05/19 at 03:30; Stop 06/05/19 at 03:59; Status DC Enoxaparin Sodium (Lovenox 120mg Syringe) 120 mg 1X ONCE SQ Last administered on 06/05/19at 03:49; Start 06/05/19 at 03:30; Stop 06/05/19 at 03:31; Status DC Ondansetron HCl (Zofran) 4 mg PRN Q8HRS PRN IV NAUSEA/VOMITING; Start 06/05/19 at 03:30; Stop 06/06/19 at 03:29 Morphine Sulfate (Morphine Sulfate) 4 mg PRN Q2HR PRN IV PAIN; Start 06/05/19 at 03:30; Stop 06/06/19 at 03:29 Sodium Chloride 1,000 ml @ 125 mls/hr Q8H IV Last administered on 06/05/19at 03:48; Start 06/05/19 at 03:30; Stop 06/06/19 at 03:29 Fentanyl Citrate (Fentanyl 2ml Vial) 50 mcg PRN Q2HR PRN IVP PAIN; Start 06/05/19 at 08:00 Ondansetron HCl (Zofran) 4 mg PRN Q6HRS PRN IVP NAUSEA/VOMITING; Start 1 08/06/18 at 08:00 Oxycodone/ Acetaminophen (Percocet 5/325) 1 tab PRN Q4HRS PRN PO PAIN; Start 06/05/19 at 08:00 Diphenhydramine HCl (Benadryl) 50 mg QIDPRN PRN PO ALLERGIES; Start 06/05/19 at 08:00 Docusate Sodium (Colace) 100 mg BID PO Last administered on 06/05/19at 11:56; Start 06/05/19 at 09:00 Famotidine (Pepcid) 20 mg BID PO Last administered on 06/05/19at 11:56; Start 06/05/19 at 09:00 Acetaminophen (Tylenol) 650 mg PRN Q6HRS PRN PO pain/fever; Start 06/05/19 at 20:00; Status UNV Active Scripts Active Pepcid (Famotidine) 20 Mg Tablet 20 Mg PO BID 10 Days Prednisone 50 Mg Tablet 50 Mg PO DAILY 7 Days Benadryl (Diphenhydramine Hcl) 25 Mg Capsule 2 Cap PO QIDPRN PRN Reported Colace (Docusate Sodium) 100 Mg Capsule 1 Cap PO BID 30 Days Allergies Allergies: Coded Allergies: metoclopramide (Verified Allergy, Severe, Anaphylaxis, 08/19/18) Vitals VITALS Vital Signs Date Time Temp Pulse Resp B/P (MAP) Pulse Ox O2 Delivery O2 Flow Rate FiO2 06/05/19 15:00 97.7 71 18 124/77 (93) 95 Room Air 97.7 Labs Labs Laboratory Tests Test 06/05/19 01:29 06/05/19 03:45 White Blood Count 3.6 x10^3/uL (4.0-11.0) Red Blood Count 4.71 x10^6/uL (3.50-5.40) Hemoglobin 12.4 g/dL (12.0-15.5) Hematocrit 37.9 % (36.0-47.0) Mean Corpuscular Volume 80 fL (79-100) Mean Corpuscular Hemoglobin 26 pg (25-35) Mean Corpuscular Hemoglobin Concent 33 g/dL (31-37) Red Cell Distribution Width 15.5 % (11.5-14.5) Platelet Count 178 x10^3/uL (140-400) Neutrophils (%) (Auto) 56 % (31-73) Lymphocytes (%) (Auto) 24 % (24-48) Monocytes (%) (Auto) 12 % (0-9) Eosinophils (%) (Auto) 7 % (0-3) Basophils (%) (Auto) 1 % (0-3) Neutrophils # (Auto) 2.0 x10^3/uL (1.8-7.7) Lymphocytes # (Auto) 0.9 x10^3/uL (1.0-4.8) Monocytes # (Auto) 0.4 x10^3/uL (0.0-1.1) Eosinophils # (Auto) 0.3 x10^3/uL (0.0-0.7) Basophils # (Auto) 0.0 x10^3/uL (0.0-0.2) Sodium Level 140 mmol/L (136-145) Potassium Level 3.7 mmol/L (3.5-5.1) Chloride Level 104 mmol/L (98-107) Carbon Dioxide Level 27 mmol/L (21-32) Anion Gap 9 (6-14) Blood Urea Nitrogen 16 mg/dL (7-20) Creatinine 1.0 mg/dL (0.6-1.0) Estimated GFR (Cockcroft-Gault) 78.8 BUN/Creatinine Ratio 16 (6-20) Glucose Level 96 mg/dL (70-99) Calcium Level 8.4 mg/dL (8.5-10.1) Total Bilirubin 0.2 mg/dL (0.2-1.0) Aspartate Amino Transf (AST/SGOT) 21 U/L (15-37) Alanine Aminotransferase (ALT/SGPT) 22 U/L (14-59) Alkaline Phosphatase 84 U/L (46-116) Total Protein 7.0 g/dL (6.4-8.2) Albumin 3.1 g/dL (3.4-5.0) Albumin/Globulin Ratio 0.8 (1.0-1.7) Lipase 152 U/L (73-393) Tumor Marker Alpha Fetoprotein 1.1 ng/mL (0.0-8.3) Urine Collection Type Unknown Urine Color Yellow Urine Clarity Cloudy Urine pH 7.5 Urine Specific Jon[place] >=1.030 Urine Protein Negative mg/dL (NEG-TRACE) Urine Glucose (UA) Negative mg/dL (NEG) Urine Ketones (Stick) Negative mg/dL (NEG) Urine Blood Negative (NEG) Urine Nitrite Negative (NEG) Urine Bilirubin Negative (NEG) Urine Urobilinogen Dipstick 1.0 mg/dL (0.2 mg/dL) Urine Leukocyte Esterase Moderate (NEG) Urine RBC Rare /HPF (0-2) Urine WBC 11-20 /HPF (0-4) Urine Squamous Epithelial Cells Few /LPF Urine Bacteria Few /HPF (0-FEW) Laboratory Tests Test 06/05/19 01:29 06/05/19 03:45 White Blood Count 3.6 x10^3/uL (4.0-11.0) Red Blood Count 4.71 x10^6/uL (3.50-5.40) Hemoglobin 12.4 g/dL (12.0-15.5) Hematocrit 37.9 % (36.0-47.0) Mean Corpuscular Volume 80 fL (79-100) Mean Corpuscular Hemoglobin 26 pg (25-35) Mean Corpuscular Hemoglobin Concent 33 g/dL (31-37) Red Cell Distribution Width 15.5 % (11.5-14.5) Platelet Count 178 x10^3/uL (140-400) Neutrophils (%) (Auto) 56 % (31-73) Lymphocytes (%) (Auto) 24 % (24-48) Monocytes (%) (Auto) 12 % (0-9) Eosinophils (%) (Auto) 7 % (0-3) Basophils (%) (Auto) 1 % (0-3) Neutrophils # (Auto) 2.0 x10^3/uL (1.8-7.7) Lymphocytes # (Auto) 0.9 x10^3/uL (1.0-4.8) Monocytes # (Auto) 0.4 x10^3/uL (0.0-1.1) Eosinophils # (Auto) 0.3 x10^3/uL (0.0-0.7) Basophils # (Auto) 0.0 x10^3/uL (0.0-0.2) Sodium Level 140 mmol/L (136-145) Potassium Level 3.7 mmol/L (3.5-5.1) Chloride Level 104 mmol/L (98-107) Carbon Dioxide Level 27 mmol/L (21-32) Anion Gap 9 (6-14) Blood Urea Nitrogen 16 mg/dL (7-20) Creatinine 1.0 mg/dL (0.6-1.0) Estimated GFR (Cockcroft-Gault) 78.8 BUN/Creatinine Ratio 16 (6-20) Glucose Level 96 mg/dL (70-99) Calcium Level 8.4 mg/dL (8.5-10.1) Total Bilirubin 0.2 mg/dL (0.2-1.0) Aspartate Amino Transf (AST/SGOT) 21 U/L (15-37) Alanine Aminotransferase (ALT/SGPT) 22 U/L (14-59) Alkaline Phosphatase 84 U/L (46-116) Total Protein 7.0 g/dL (6.4-8.2) Albumin 3.1 g/dL (3.4-5.0) Albumin/Globulin Ratio 0.8 (1.0-1.7) Lipase 152 U/L (73-393) Tumor Marker Alpha Fetoprotein 1.1 ng/mL (0.0-8.3) Urine Collection Type Unknown Urine Color Yellow Urine Clarity Cloudy Urine pH 7.5 Urine Specific Jonancy >=1.030 Urine Protein Negative mg/dL (NEG-TRACE) Urine Glucose (UA) Negative mg/dL (NEG) Urine Ketones (Stick) Negative mg/dL (NEG) Urine Blood Negative (NEG) Urine Nitrite Negative (NEG) Urine Bilirubin Negative (NEG) Urine Urobilinogen Dipstick 1.0 mg/dL (0.2 mg/dL) Urine Leukocyte Esterase Moderate (NEG) Urine RBC Rare /HPF (0-2) Urine WBC 11-20 /HPF (0-4) Urine Squamous Epithelial Cells Few /LPF Urine Bacteria Few /HPF (0-FEW) MARGO CLAYTON MD Jun 05, 2019 19:58
[2019-06-05] MEDS ORDERED: ACETAMINOPHEN 325 MG TABLET. PO PRN ×2 (20:00)
[2019-06-05] MEDS: APIXABAN 5 MG TABLET. PO SCH (20:28)
[2019-06-05 23:00] VITALS: BP 116/76
[2019-06-06 03:00] VITALS: BP 104/67
[2019-06-06 07:00] VITALS: BP 133/90
[2019-06-06] MEDS: FAMOTIDINE 20 MG TABLET. PO SCH (08:47)
[2019-06-06] MEDS: APIXABAN 5 MG TABLET. PO SCH (08:47)
[2019-06-06] MEDS: DOCUSATE SODIUM 100 MG CAPSULE. PO SCH (08:47)
[2019-06-06] MEDS ORDERED: OXYC1TAB15 PO (09:06)
[2019-06-06] MEDS ORDERED: FAMO-63 PO (09:06)
[2019-06-06] MEDS ORDERED: APIX5TAB PO (09:06)
--- NOTE | 2019-06-06 10:04 | PDOC ---
Subjective: Subjective: Had some mild lower abdominal discomfort this morning - resovled after stooling and passing gas - hard to say if in same location as before. Tolerating PO. Asks about going home. Wonders if she needs to take iron because she's taking Eliquis. Wonders if she's supposed to take pantoprazole or Pepcid. Did not see STAFFING PROGRAM MANAGER. Objective: Vital Signs: Vital Signs Date Time Temp Pulse Resp B/P (MAP) Pulse Ox O2 Delivery O2 Flow Rate FiO2 06/06/19 07:00 97.5 74 16 133/90 (104) 97 Room Air 97.5 Imaging: Abd US IMPRESSION: 5.5 cm hyperechoic solid mass of the dome of the right lobe ofthe liver without internal color flow consistent with a hemangioma and corresponds to the CT finding. This finding may be followed sonographically in 3 months. If the patient has a history of primary malignancy, then a multiphasic abdomen MRI with contrast study may be helpful for further evaluation now. Normal so nographic evaluation of gallbladder. PE: GEN: NAD LUNGS: CTAB HEART: RRR ABD: S/ND/NT NEURO/PSYCH: A & O 3 A/P: N/v, abd pain, bloating - resolved, possible food poisoning w/ h/o GERD during - on Pepcid here Right ovarian vein thrombosis - now on Eliquis per hematology, STAFFING PROGRAM MANAGER opinion pending Suspected hepatic hemangioma UTI - per primary H/o constipation - controlled -- All questions answered to her satisfaction. Will contact to schedule US in 3 months for monitoring. Continue acid-portfolio manager in some form for a month or so (or may want to continue while taking Eliquis) - discussed OTC PPIs and H2 blockers. She plans to restart pre-nelia vitamins. Dc per primary - discussed w/ pt and family w/ nurse present. Hemodynamically unstable?: No Is patient in severe pain?: No Is NPO status required?: No MAYCOL OHARA Jun 06, 2019 10:04
[2019-06-06 11:00] VITALS: BP 92/46
--- NOTE | 2019-06-06 12:14 | PDOC3 ---
Discharge Summary Visit Information Date of Admission: Jun 05, 2019 Date of Discharge: Jun 06, 2019 Final Diagnosis Problems Medical Problems: (1) Liver mass Status: Acute (2) Nausea and vomiting Status: Acute (3) Thrombosis of ovarian vein Status: Acute Brief Hospital Course Allergies Allergies Coded Allergies Type Severity Reaction Last Updated Verified metoclopramide Allergy Severe Anaphylaxis 08/19/18 Yes Vital Signs Vital Signs Date Time Temp Pulse Resp B/P (MAP) Pulse Ox O2 Delivery O2 Flow Rate FiO2 06/06/19 11:00 Lab Results Laboratory Tests Test 06/05/19 01:29 06/05/19 03:45 White Blood Count 3.6 x10^3/uL (4.0-11.0) Red Blood Count 4.71 x10^6/uL (3.50-5.40) Hemoglobin 12.4 g/dL (12.0-15.5) Hematocrit 37.9 % (36.0-47.0) Mean Corpuscular Volume 80 fL (79-100) Mean Corpuscular Hemoglobin 26 pg (25-35) Mean Corpuscular Hemoglobin Concent 33 g/dL (31-37) Red Cell Distribution Width 15.5 % (11.5-14.5) Platelet Count 178 x10^3/uL (140-400) Neutrophils (%) (Auto) 56 % (31-73) Lymphocytes (%) (Auto) 24 % (24-48) Monocytes (%) (Auto) 12 % (0-9) Eosinophils (%) (Auto) 7 % (0-3) Basophils (%) (Auto) 1 % (0-3) Neutrophils # (Auto) 2.0 x10^3/uL (1.8-7.7) Lymphocytes # (Auto) 0.9 x10^3/uL (1.0-4.8) Monocytes # (Auto) 0.4 x10^3/uL (0.0-1.1) Eosinophils # (Auto) 0.3 x10^3/uL (0.0-0.7) Basophils # (Auto) 0.0 x10^3/uL (0.0-0.2) Sodium Level 140 mmol/L (136-145) Potassium Level 3.7 mmol/L (3.5-5.1) Chloride Level 104 mmol/L (98-107) Carbon Dioxide Level 27 mmol/L (21-32) Anion Gap 9 (6-14) Blood Urea Nitrogen 16 mg/dL (7-20) Creatinine 1.0 mg/dL (0.6-1.0) Estimated GFR (Cockcroft-Gault) 78.8 BUN/Creatinine Ratio 16 (6-20) Glucose Level 96 mg/dL (70-99) Calcium Level 8.4 mg/dL (8.5-10.1) Total Bilirubin 0.2 mg/dL (0.2-1.0) Aspartate Amino Transf (AST/SGOT) 21 U/L (15-37) Alanine Aminotransferase (ALT/SGPT) 22 U/L (14-59) Alkaline Phosphatase 84 U/L (46-116) Total Protein 7.0 g/dL (6.4-8.2) Albumin 3.1 g/dL (3.4-5.0) Albumin/Globulin Ratio 0.8 (1.0-1.7) Lipase 152 U/L (73-393) Tumor Marker Alpha Fetoprotein 1.1 ng/mL (0.0-8.3) Urine Collection Type Unknown Urine Color Yellow Urine Clarity Cloudy Urine pH 7.5 Urine Specific [place] >=1.030 Urine Protein Negative mg/dL (NEG-TRACE) Urine Glucose (UA) Negative mg/dL (NEG) Urine Ketones (Stick) Negative mg/dL (NEG) Urine Blood Negative (NEG) Urine Nitrite Negative (NEG) Urine Bilirubin Negative (NEG) Urine Urobilinogen Dipstick 1.0 mg/dL (0.2 mg/dL) Urine Leukocyte Esterase Moderate (NEG) Urine RBC Rare /HPF (0-2) Urine WBC 11-20 /HPF (0-4) Urine Squamous Epithelial Cells Few /LPF Urine Bacteria Few /HPF (0-FEW) Brief Hospital Course Ms. Stern is a 29 old AA heavy set female [sex] who presented with [ ]abd pain and was found to have rt ovarian vein thrombosis, HEme onc consulted, advised 3 mos OAC,and she agreeable, ALso some incidental; liver dome lesion, likelly hemangiona, GI just recommends 3 mo sono ff up - i wrote rx, ABle to tolerate pO, no more pain, also advised to cont home pepcid DIspO; home with fam COnsults: heme onc, GI, ob gyne(never saw her) Discharge Information Condition at Discharge: Improved, Stable Follow Up: Weeks (DR Luis Ivan 3 mos) Disposition/Orders: D/C to Home Scheduled Apixaban (Eliquis) 5 Mg Tablet, 10 MG PO BID for ovraina veinthrombosis for 7 Days, #28 Prescribed by: ESTHER BARRERA on 06/06/19905 Apixaban (Eliquis) 5 Mg Tablet, 5 MG PO BID for ovarian veinthmbosis for 90 Days, #180 Prescribed by: ESTHER BARRERA on 06/06/1906 Docusate Sodium (Colace) 100 Mg Capsule, 1 CAP PO BID for constipation for 30 Days, #60 Ref 0 (Reported) Entered as Reported by: GISELA STERN on 06/05/19518 Last Taken: UNKNOWN on Unknown Date & Time Last Action: Continued on 06/05/19747 by ESTHER BARRERA Famotidine (Pepcid) 20 Mg Tablet, 20 MG PO BID for gerd for 10 Days, #60 Prescribed by: ESTHER BARRERA on 06/06/19905 Scheduled PRN Diphenhydramine Hcl (Benadryl) 25 Mg Capsule, 2 CAP PO QIDPRN PRN for ALLERGIES, #60 Ref 2 Prescribed by: BULL KAMARA DO on 08/19/181801 Last Action: Continued on 06/05/19747 by ESTHER BARRERA Oxycodone/Apap 5-325 (Percocet 5-325 Mg Tablet ) 1 Each Tablet, 1 TAB PO PRN Q4HRS PRN for moderate - severe pain, #20 Prescribed by: ESTHER BARRERA on 06/06/19905 Discontinued Medications Prednisone (Prednisone) 50 Mg Tablet, 50 MG PO DAILY for 7 Days, #7 Prescribed by: BULL KAMARA DO on 08/19/181801 Last Action: HELD on 06/05/19747 by ESTHER BARRERA Hemodynamically unstable?: No Is patient in severe pain?: No Is NPO status required?: No ESTHER BARRERA MD Jun 06, 2019 12:14
--- NOTE | 2019-06-06 12:55 | NUR ---
SW following. Discussed with RN. Pt is from home, RN advised no SW needs at this time. SW will continue to follow for any discharge planning needs.
--- NOTE | 2019-06-06 13:10 | NUR ---
Discharge Note: ISACC CALLE Discharge instructions and discharge home medications reviewed with Patient and a copy given. All questions have been answered and understanding verbalized. Discontinued IV lines Patient discharged to home with all belongings
[2019-06-12] MEDS ORDERED: APIXABAN 5 MG TABLET. PO SCH (21:00)
== END 2019-06-06 13:05 | disposition home or self-care (01) | DRG 300 ==
LOC: ER 00:24 → 4 NORTH 03:20
PROVIDERS: ADMIT Family Medicine; ATTEND Family Medicine
DX: I82.890 Acute embolism and thrombosis of other specified veins (principal); N39.0 Urinary tract infection, site not specified; Z68.41 Body mass index [BMI] 40.0-44.9, adult; D18.03 Hemangioma of intra-abdominal structures; E66.9 Obesity, unspecified; J45.909 Unspecified asthma, uncomplicated; K21.9 Gastro-esophageal reflux disease without esophagitis; K59.00 Constipation, unspecified; Z79.01 Long term (current) use of anticoagulants
CPT/HCPCS: 36415; 74177; 76705; 80053; 81001; 82105; 83690; 85025; 87086; 96361; 96365; 96372; 96375; J1650; J2405; J2543; J3010; J7030; Q9967; 99285-25; G0378

== ENCOUNTER 2021-08-28 14:50 | Emergency (ER) | payer OTHER ==
[~2021-08-28] VITALS: Ht 167.6 cm; Wt 150.6 kg
[~2021-08-28 14:50] MED LIST changes: +APIX5TAB PO; +DOCU-109 PO; +OXYC1TAB15 PO
--- NOTE | 2021-08-28 14:55 | PHYS DOC ---
Past Medical History Past Medical History: Asthma, Hypertension Past Surgical History: , Tubal ligation Smoking Status: Never Smoker Alcohol Use: None Drug Use: None General Adult EDM: Chief Complaint: RAPID HEART RATE HPI: HPI: Patient is a 31 year old female who presents with at least 2 weeks of i ntermittent palpitations and feeling like her rate is elevated. She has had tachycardia in the low 100s up to the 120s. She reports that she has had progressive weight increasing blood pressure as well. She recently saw her PCP, started hydrochlorothiazide treatment. She denies chest pain. She does report occasional, mild dyspnea, and she attributes this usually to asthma exac erbations. She denies any active dyspnea at present. She denies exertional dyspnea. She denies syncope or near syncope. She denies abdominal pain, nausea, vomiting. She denies any weight loss or weight gain. She actually just saw her primary care physician this past Monday and she was being seen for something else, so she forgot to mention the palpitations and elevated heart rate at that time. No real changes in her symptoms today. She is on undergone quite a bit of stress recently, her brother recently of what sounds like a pulmonary embolus. She has had a previous DVT, ovarian vein thrombosis, , about 2 years ago. She took the appropriate course of Eliquis thereafter, she is not currently anticoagulated. She does not have any known thrombophilia or hypercoagulable state. LMP this last week. She is not taking any estrogen-containing oral contraceptives. Review of Systems: Review of Systems: Constitutional: Denies fever or chills. [] HENT: Denies nasal congestion or sore throat. [] Respiratory: Denies cough hemoptysis. Rare shortness of breath only with wheezing and asthma exacerbations, none currently Cardiovascular: Denies chest pain or edema. [] GI: Denies abdominal pain, nausea, vomiting : Denies urinary symptoms Musculoskeletal: Denies back pain or joint pain. [] Integument: Denies rash. [] Neurologic: Denies headache, focal weakness or sensory changes. Denies dizziness or syncope. Psychiatric: Mild anxiety and stress related to current life events. Heart Score: C/O Chest Pain: No Risk Factors: Risk Factors: DM, Current or recent (<one month) smoker, HTN, HLP, family history of CAD, obesity. Risk Scores: Score 0 - 3: 2.5% MACE over next 6 weeks - Discharge Home Score 4 - 6: 20.3% MACE over next 6 weeks - Admit for Clinical Observation Score 7 - 10: 72.7% MACE over next 6 weeks - Early Invasive Strategies Allergies: Allergies: Allergies Coded Allergies Type Severity Reaction Last Updated Verified metoclopramide Allergy Severe Anaphylaxis 08/19/18 Yes Physical Exam: PE: Constitutional: Well developed, well nourished, no acute distress, non-toxic appearance. [] HENT: Normocephalic, atraumatic, oropharynx is patent and clear, no evidence of facial or oral trauma. External ears are normal bilaterally Eyes: Sclera are clear and anicteric. Conjunctive are normal Neck: Normal range of motion, no tenderness, supple, no stridor. Achy midline. No JVD. No meningismus Cardiovascular: Tachycardic, regular, heart rate in the low 100s. +2 radial and +2 posterior tibial pulses bilaterally Lungs & Thorax: Lungs are clear to auscultation bilateral without rales, rhonc hi, wheezes. No tachypnea. Equal chest rise. No stridor. No evidence of respiratory distress Abdomen: Abdomen is obese, soft, nondistended, nontender to palpation. Skin: Warm, dry, no erythema, no rash. [] Back: No tenderness, no CVA tenderness. [] Extremities: No tenderness, no cyanosis, no clubbing, ROM intact, no edema. No calf tenderness. Neurologic: Alert and oriented X 3, normal motor function, normal sensory function, no focal deficits noted. [] Psychologic: Mildly anxious. Mood is normal, judgment is normal. She is pleasant and cooperative. EKG: EKG: EKG is interpreted at 1459 Rhythm is sinus tachycardia Rate is 116 bpm [place] is normal No STEMI Radiology/Procedures: Radiology/Procedures: IMAGING REPORT Signed PATIENT: ISACC CALLE ACCOUNT: [id number] : 1990 LOCATION: ER AGE: 31 SEX: F EXAM STATUS: REG ER ORD. PHYSICIAN: FABY MORAES DO REASON: tachycardia, dyspnea, hx of previous DVT PROCEDURE: CT ANGIOGRAPHY CHEST EXAM: CT ANGIOGRAPHY OF THE CHEST WITH AND WITHOUT CONTRAST. HISTORY: Tachycardia, dyspnea, deep venous thrombosis. TECHNIQUE: Computed tomographic angiography of the chest was performed before and after the intravenous administration of iodinated contrast. 3-D maximum intensity projections were also performed. One or more of the following individualized dose reduction techniques were utilized for this examination: 1. Automated exposure control. 2. Adjustment of the mA and/or kV according to patient size. 3. Use of iterative reconstruction technique. COMPARISON: 06/05/2019. FINDINGS: Images of the upper abdomen reveal a 7.6 x 6.3 cm hypoattenuating mass within the right hepatic lobe. This was consistent with a benign hemangioma on the 2019 study, when it measured 6.6 cm. One small focus of peripheral nodular enhancement is currently detectable in this phase of contrast enhancement Bone windows reveal no suspicious lesions. No pulmonary emboli are identified. There is no aortic dissection or aneurysm. There are no pathologically enlarged mediastinal or axillary lymph nodes. There is no pleural or pericardial effusion. The heart is not enlarged. Lung windows reveal no infiltrates. IMPRESSION: 1. No pulmonary embolism. 2. A 7.6 cm hemangioma within the right hepatic lobe has increased in size slowly from 6.6 cm in 2019. Ongoing sporadic follow-up is recommended. Electronically signed by: Lv Mcintyre MD (08/28/2021 4:23 PM) [id number] DICTATED and SIGNED BY: BULL MCINTYRE MD DATE: 08/28/21 [id number] Course & Med Decision Making: Course & Med Decision Making Pertinent Labs and Imaging studies reviewed. (See chart for details) I discussed the findings, differential diagnosis and plan of care with her. At 1640, her heart rate is 90. Blood pressure is 131/68. O2 sat is 97% on room air. She manifest no evidence of distress. CT is negative for PE. She continues to deny chest pain. She manifests no evidence of respiratory distress. Laboratory exams are unremarkable for any acute life-threatening pathology. I recommend she follow-up with outpatient cardiology services, as well as her primary care physician. She is given outpatient cardiology referral. Strict return precautions are given. She verbalizes understanding and is comfortable with the plan of care. Dragon Disclaimer: Dragon Disclaimer: This electronic medical record was generated, in whole or in part, using a voice recognition dictation system. Departure Departure Impression: Primary Impression: Sinus tachycardia Additional Impression: Palpitations Referrals: UNKNOWN PCP NAME (PCP) Patient Instructions: Nonspecific Tachycardia, Palpitations Additional Instructions: Your labs today are normal. Your CAT scan does not show any evidence of a blood clot. Your oxygen level is normal, your blood pressure is stable. Your heart rate has come down to the 90s here. Your heart rate is occasionally mildly elevated, though not dangerously so. You are being given information for outpatient cardiology services. Please contact your primary care doctor to discuss this further as well. Return to the ER for chest pain, coughing up blood, severe dizziness, vomiting, if you develop severe shortness of breath, refractory wheezing with your asthma or for any other concerns. FABY MORAES DO Aug 28, 2021 14:55
[2021-08-28 15:22] LABS: BASO # 0.1 x10^3/uL (0.0-0.2); BASO % 1 % (0-3); EOS # 0.2 x10^3/uL (0.0-0.7); EOS % 3 % (0-3); HEMOGLOBIN 13.6 g/dL (12.0-15.5); LYMPH # 1.3 x10^3/uL (1.0-4.8); LYMPH % 22 % (24-48); MEAN CORPUSCULAR HEMOGLOBIN 26 pg (25-35); MEAN CORPUSCULAR HGB CONC 32 g/dL (31-37); MEAN CORPUSCULAR VOLUME 79 fL (79-100); MONO # 0.4 x10^3/uL (0.0-1.1); MONO % 7 % (0-9); NEUT # 3.9 x10^3/uL (1.8-7.7); NEUT % 67 % (31-73); PLATELET COUNT 288 x10^3/uL (140-400); RED BLOOD COUNT 5.33 x10^6/uL (3.50-5.40); RED CELL DISTRIBUTION WIDTH 15.5 % (11.5-14.5); WHITE BLOOD COUNT 5.7 x10^3/uL (4.0-11.0)
[2021-08-28 15:34] LABS: CALCIUM 9.7 mg/dL (8.5-10.1); CREATININE 1.2 mg/dL (0.6-1.0); POTASSIUM 3.7 mmol/L (3.5-5.1)
[2021-08-28] MEDS ORDERED: CONTRAST GIVEN. MC PRN (15:45)
[2021-08-28] MEDS ORDERED: IOHEXOL 350 MG/ML 100 ML VIAL. IV ONE (15:45)
[2021-08-28 15:46] LABS: PREG TEST PT QUAL NEGATIVE (NEG)
--- NOTE | 2021-08-28 16:25 | RAD ---
EXAM: CT ANGIOGRAPHY OF THE CHEST WITH AND WITHOUT CONTRAST. HISTORY: Tachycardia, dyspnea, deep venous thrombosis. TECHNIQUE: Computed tomographic angiography of the chest was performed before and after the intraveno us administration of iodinated contrast. 3-D maximum intensity projections were also performed. One o r more of the following individualized dose reduction techniques were utilized for this examination: 1. Automated exposure control. 2. Adjustment of the mA and/or kV according to patient size. 3. Use of iterative reconstruction technique. COMPARISON: 06/05/2019. FINDINGS: Images of the upper abdomen reveal a 7.6 x 6.3 cm hypoattenuating mass within the right hep atic lobe. This was consistent with a benign hemangioma on the 2019 study, when it measured 6.6 cm. O ne small focus of peripheral nodular enhancement is currently detectable in this phase of contrast en hancement Bone windows reveal no suspicious lesions. No pulmonary emboli are identified. There is no aortic dissection or aneurysm. There are no pathologically enlarged mediastinal or axillary lymph nodes. There is no pleural or magdi cardial effusion. The heart is not enlarged. Lung windows reveal no infiltrates. IMPRESSION: 1. No pulmonary embolism. 2. A 7.6 cm hemangioma within the right hepatic lobe has increased in size slowly from 6.6 cm in 2019 . Ongoing sporadic follow-up is recommended. Electronically signed by: Lv Paniagua MD (08/28/2021 4:23 PM) NHUNG
[2021-08-28 16:52] VITALS: BP 134/81
--- NOTE | 2021-08-28 21:11 | EKG ---
[facility] [address] [place] [address] Test Date: 2021-08-28 Test Time: 14:58:35 Pat Name: ISACC CALLE Department: Room: Gender: F [employer]: : 1990 Requested By: FABY MORAES Order Number: [id number] Reading MD: Measurements Intervals [place] Rate: 116 P: 53 PA: 114 QRS: 36 QRSD: 94 T: -13 QT: 308 QTc: 434 Interpretive Statements SINUS TACHYCARDIA T ABNORMALITY IN INFERIOR LEADS ABNORMAL ECG RI6.02 No previous ECG available for comparison
== END 2021-08-28 17:03 | disposition home or self-care (01) ==
LOC: ER 14:50
DX: R00.0 Tachycardia, unspecified (principal); R00.2 Palpitations; J45.909 Unspecified asthma, uncomplicated; I10 Essential (primary) hypertension; Z88.1 Allergy status to other antibiotic agents
CPT/HCPCS: 36415; 71275; 80048; 83880; 84443; 84484; 84703; 85025; 93005; 99285; Q9967